=== PATIENT | female | born 1980 | race Caucasian/White ===

== ENCOUNTER 2016-11-05 14:01 | Emergency (ER) | payer MEDICAID ==
[~2016-11-05] VITALS: Ht 167.6 cm; Wt 67.0 kg
[~2016-11-05 14:01] MED LIST: BUTATAB6 PO; CLON1TAB PO; IMIT25TA PO; IPRA17I INH; MEGE40S PO; TIZA4CAP3 PO
[2016-11-05 14:04] VITALS: BP 96/63; PULSE 85; RESP 16; TEMP 98.1; O2SAT 97
[2016-11-05 14:41] LABS: AUTOMATED NEUTROPHIL # 5.7 TH/MM3 (1.8-7.7); BASOPHIL % 0.5 % (0.0-2.0); EOSINOPHIL # 0.4 TH/MM3 (0-0.4); EOSINOPHIL % 3.8 % (0.0-4.0); HEMATOCRIT 41.3 % (35.0-46.0); HEMO FLAGS DIFF FINAL; LYMPH % 30.8 % (9.0-44.0); MEAN CELL VOLUME 93.3 FL (80.0-100.0); MEAN CORPUSCULAR HGB CONC 33.3 % (32.0-36.0); MONO % 6.5 % (0.0-8.0); NEUT % 58.4 % (16.0-70.0); PLATELET COUNT 166 TH/MM3 (150-450); RED BLOOD COUNT 4.43 MIL/MM3 (4.00-5.30); RED CELL DISTRIBUTION WIDTH 12.8 % (11.6-17.2); WHITE BLOOD COUNT 9.7 TH/MM3 (4.0-11.0)
[2016-11-05 14:45] LABS: CHLORIDE 106 MEQ/L (98-107); POTASSIUM 4.3 MEQ/L (3.5-5.1); SODIUM (NA) 141 MEQ/L (136-145)
[2016-11-05 14:49] LABS: ANION GAP 6 MEQ/L (5-15); BICARBONATE 28.9 MEQ/L (21.0-32.0); BLOOD UREA NITROGEN 13 MG/DL (7-18)
[2016-11-05 14:52] LABS: ALT (GPT) 25 U/L (10-53); AST (GOT) 13 U/L (15-37); GLOMERULAR FILTRATION RATE 68 ML/MIN (>89)
[2016-11-05 14:54] LABS: TOTAL BILIRUBIN ADULT 0.2 MG/DL (0.2-1.0)
[2016-11-05 14:55] LABS: ALKALINE PHOSPHATASE 75 U/L (45-117)
--- NOTE | 2016-11-05 16:21 | PD ---
HPI Chief Complaint: Seizure Time Seen by Provider: 14:07 Travel History International Travel<30 days: No Contact w/Intl Traveler<30days: No Traveled to known affect area: No History of Present Illness HPI 36-year-old female presents by ambulance after she states that she got upset and to calm herself down she elected to take 6 of her 1 mg clonazepam. She states she wasn't trying to hurt herself and did it she wanted to stop dealing with the troll. The ambulance team stated that the person with her had witnessed a possible seizure but she was not postictal on arrival. Patient does not recall episode and is a poor historian. She denies suicidal ideation but does have history of prior suicide attempt. She states she has a therapist. 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" ) Immune Disorder: No Musculoskeletal: No Neurologic: No Psychiatric: Yes Reproductive: No Respiratory: Yes Migraines: Yes Radiation Therapy: No Seizures: Yes Tetanus Vaccination: < 5 Years Influenza Vaccination: No ?: Not LMP: 2014 Past Surgical History Narrative Surgical By records AICD: No Arteriovenous Shunt: No Gynecologic Surgery: Yes (hysterectomy ) Hysterectomy: Yes Insulin Pump: No Joint Replacement: No Oral Surgery: Yes (tonsillectomy ) Pacemaker: No Tonsillectomy: Yes Other Surgery: Yes Social History Narrative Social History By records Alcohol Use: Yes (rarely; TEQUILA 11/04/16, UNKNOWN AMOUNT) Tobacco Use: Yes (1.5 PPD) Substance Use: No (DENIES CURRENT USE; HISTORY OF SMOKING MARIJUANA OCCASIONALLY) Allergies-Medications (Allergen,Severity, Reaction): Coded Allergies: Amoxicillin (Verified Allergy, Intermediate, Swelling, 11/05/16) Benadryl (Verified Allergy, Intermediate, Swelling, 11/05/16) Reported Meds & Prescriptions Reported Meds & Active Scripts Active Imitrex (Sumatriptan Succinate) 25 Mg Tab 25 Mg PO ONCE PRN If a satisfactory response has not been obtained at 2 hours, a second dose may be administered Gjupnlrvhv-Frdvrirkhnpcv-Awbeanym 50-325-40 Mg Tab 1 Tab PO Q6H PRN Reported Atrovent HFA 12.9 GM Inh (Ipratropium Mcwilliams) 17 Mcg/Act Aer 2 Puff INH Q6HR PRN Megace Liq (Megestrol Acetate) 40 Mg/Ml Susp 400 Mg PO BID Clonazepam 1 Mg Tab 1 Mg PO TID Review of Systems ROS Limitations: Poor Historian Except as stated in HPI: all other systems reviewed are Neg Physical Exam Narrative GENERAL: Well-nourished, well-developed patient. SKIN: Warm and dry. HEAD: Normocephalic and atraumatic. EYES: No injection or drainage. Pupils equal ENT: No nasal drainage noted. NECK: Supple, trachea midline. CARDIOVASCULAR: Regular rate and rhythm RESPIRATORY: Breath sounds equal bilaterally. No accessory muscle use. GASTROINTESTINAL: Abdomen soft, non-tender, nondistended. EXTREMITIES: No edema. NEUROLOGICAL: Awake and alert. Motor and sensory grossly within normal limits. Normal speech. Data Data Last Documented VS Vital Signs Date Time Temp Pulse Resp B/P Pulse Ox O2 Delivery O2 Flow Rate FiO2 11/05/16 14:12 16 96 Room Air 11/05/16 14:04 98.1 85 96/63 Orders Complete Blood Count With Diff (11/05/16 14:07) Comprehensive Metabolic Panel (11/05/16 14:07) Electrocardiogram (11/05/16 14:07) Psych Screen (11/05/16 14:07) Drug Screen, Random Urine (11/05/16 14:07) Alcohol (Ethanol) (11/05/16 14:07) ^ Sitter (11/05/16 14:07) Ct Brain W/O Iv Contrast(Rout) (11/05/16 ) Labs Laboratory Tests Test 11/05/16 14:30 White Blood Count 9.7 TH/MM3 Red Blood Count 4.43 MIL/MM3 Hemoglobin 13.7 GM/DL Hematocrit 41.3 % Mean Corpuscular Volume 93.3 FL Mean Corpuscular Hemoglobin 31.0 PG Mean Corpuscular Hemoglobin 33.3 % Concent Red Cell Distribution Width 12.8 % Platelet Count 166 TH/MM3 Mean Platelet Volume 10.2 FL Neutrophils (%) (Auto) 58.4 % Lymphocytes (%) (Auto) 30.8 % Monocytes (%) (Auto) 6.5 % Eosinophils (%) (Auto) 3.8 % Basophils (%) (Auto) 0.5 % Neutrophils # (Auto) 5.7 TH/MM3 Lymphocytes # (Auto) 3.0 TH/MM3 Monocytes # (Auto) 0.6 TH/MM3 Eosinophils # (Auto) 0.4 TH/MM3 Basophils # (Auto) 0.0 TH/MM3 CBC Comment DIFF FINAL Differential Comment Sodium Level 141 MEQ/L Potassium Level 4.3 MEQ/L Chloride Level 106 MEQ/L Carbon Dioxide Level 28.9 MEQ/L Anion Gap 6 MEQ/L Blood Urea Nitrogen 13 MG/DL Creatinine 0.93 MG/DL Estimat Glomerular Filtration 68 ML/MIN Rate Random Glucose 97 MG/DL Calcium Level 9.0 MG/DL Total Bilirubin 0.2 MG/DL Aspartate Amino Transf 13 U/L (AST/SGOT) Alanine Aminotransferase 25 U/L (ALT/SGPT) Alkaline Phosphatase 75 U/L Total Protein 6.9 GM/DL Albumin 3.6 GM/DL Ethyl Alcohol Level LESS THAN 3 MG/DL MDM Medical Decision Making Medical Screen Exam Complete: Yes Emergency Medical Condition: Yes Medical Record Reviewed: Yes (past history confirmed) Interpretation(s) CBC & BMP Diagram 11/05/16 14:30 Differential Diagnosis Overdose, seizure disorder, intracranial, electrolyte abnormality, coingestion Narrative Course Will check blood work, CT brain and monitor Patient without respiratory depression or drowsiness here. CT machine is down and patient will need psychiatry evaluation so we will transfer to [facility] for completion of workup. Patient would not voluntarily talk with the psychiatry team and given her history of suicide attempt and taking 6 pills at once [place] act will be placed. ambulance here at 1715 for transfer Physician Communication Physician Communication Dr. Banda given transfer report Diagnosis Primary Impression: Overdose Qualified Code: T50.904A - Overdose, undetermined intent, initial encounter Additional Impression: Seizure Erica De León MD Nov 05, 2016 16:21
[2016-11-05 19:05] VITALS: BP 105/69; PULSE 83; RESP 18; TEMP 98.2; O2SAT 95
--- NOTE | 2016-11-05 21:21 | EKG ---
Date Performed: 11/05/2016 Time Performed: 14:16:22 PTAGE: 36 years EKG: Sinus rhythm Normal ECG PREVIOUS TRACING : 07/17/2016 20.20 Compared to previous tracing, sinus rhythm has replaced ect opic atrial bradycardia, heart rate has increased. DOCTOR: Clayton Chong Interpretating Date/Time 11/05/2016 21:19:04
[2016-11-05 22:07] VITALS: BP 121/72; PULSE 71; RESP 18; TEMP 97.1; O2SAT 96
[2016-11-05] MEDS ORDERED: LORazepam 2 MG/ML VIAL IM ONE (22:30)
[2016-11-05] MEDS ORDERED: HALOPERIDOL LACTATE 5 MG/ML AMP IM ONE (22:30)
[2016-11-05 22:39] LABS: AMPHETAMINE, URINE NEG (NEG); BARBITURATES, URINE NEG (NEG); COCAINE, URINE NEG (NEG)
== END 2016-11-06 02:19 ==
LOC: PHED 14:01 → NEPJ 11-06 02:19
DX: T42.4X4A Poisoning by benzodiazepines, undetermined, initial encounter (principal); R56.9 Unspecified convulsions; J45.909 Unspecified asthma, uncomplicated; F41.9 Anxiety disorder, unspecified; Y92.9 Unspecified place or not applicable
CPT/HCPCS: 80053; 80307; 80320; 85025; 93005; 99281